=== PATIENT | female | born 1960 | race Caucasian/White ===

== ENCOUNTER 2017-12-16 11:23 | Emergency (ER) | payer BC ==
[~2017-12-16] VITALS: Ht 175.3 cm; Wt 95.8 kg
[~2017-12-16 11:23] MED LIST: ANTIBIOTIC PO; BAYER PLUS 500500 MG PO; CREON 241 CAPSULE PO; Creon 24 PO; DILAUDID2 MG PO; MINOCIN50 MG PO; MIRALAX255 GM PO; MORPHINE SULFAT15 M1 PO; NOHOMEMEDS; NORCO 5/3251 TABLET PO; PHENERGAN25 MG PR; PriLOSEC PO; SENNA PLUS TAB1 EACH PO; TRAMADOL HCL50 MG PO; Tylenol/Codeine #3 PO; WARFARIN SODIUM6 MG PO; ZOCOR5 MG PO; ZOFRAN4 MG PO; [UNRECOGNIZED DRUG - OTHER] PO
[2017-12-16] MEDS ORDERED: LORTAB 5-325 M1 EACH PO (13:20)
[2017-12-16 13:45] VITALS: BP 100/76
== END 2017-12-16 14:15 | disposition home or self-care (01) ==
LOC: EME 11:23
DX: S86.811A Strain of other muscle(s) and tendon(s) at lower leg level, right leg, initial encounter (principal); S80.01XA Contusion of right knee, initial encounter; W01.0XXA Fall on same level from slipping, tripping and stumbling without subsequent striking against object, initial encounter; W23.0XXA Caught, crushed, jammed, or pinched between moving objects, initial encounter; Z79.01 Long term (current) use of anticoagulants; E78.5 Hyperlipidemia, unspecified; F32.9 Major depressive disorder, single episode, unspecified
CPT/HCPCS: 73564; 73590; 99281; 99285; J2270; J3010; J7030